=== PATIENT | male | born 1965 | race Caucasian/White ===

== ENCOUNTER 2018-10-23 09:32 | Observation (INO) | payer OTHER ==
--- NOTE | 2018-10-23 09:55 | ER Document Report ---
ED Medical Screen (RME) - General Chief Complaint: Hand Pain Stated Complaint: FINGER PAIN Time Seen by Provider: 10/23/18 09:52 Mode of Arrival: Ambulatory Information source: Patient TRAVEL OUTSIDE OF THE [place] IN LAST 30 DAYS: No - HPI Patient complains to provider of: R finger pain and swelling Onset: Last week - pt with injury to R long finger last week -- now with swelling, pain and drainage from that finger with swollen axillary nodes. He is NIDDM - Related Data Allergies/Adverse Reactions: No Known Allergies Allergy (Unverified 10/23/18 09:38) Past Medical History - Social History Chew tobacco use (# tins/day): No Frequency of alcohol use: None Drug Abuse: None Endocrine Medical History: Reports: Hx Diabetes Mellitus Type 2 Renal/ Medical History: Denies: Hx Peritoneal Dialysis Past Surgical History: Reports: Hx Appendectomy Physical Exam - Vital signs Vitals: Temp Pulse Resp BP Pulse Ox 98.4 F 96 17 162/84 H 97 10/23/18 09:37 10/23/18 09:37 10/23/18 09:37 10/23/18 09:37 10/23/18 09:37 Course - Vital Signs Vital signs: Temp Pulse Resp BP Pulse Ox 98.4 F 96 17 162/84 H 97 10/23/18 09:37 10/23/18 09:37 10/23/18 09:37 10/23/18 09:37 10/23/18 09:37
--- NOTE | 2018-10-23 10:16 | ER Document Report ---
ED General - General Chief Complaint: Hand Pain Stated Complaint: FINGER PAIN Time Seen by Provider: 10/23/18 09:52 Primary Care Provider: DILCIA KELLER PA [Primary Care Provider] - Follow up as needed Mode of Arrival: Ambulatory Notes: Patient is a 53-year-old male with diabetes mellitus that presents to the emergency department for chief complaint of right finger swelling. Patient reports that he had an injury to his right middle finger where it was crushed in a sliding glass door about a week ago, around the same time he did have an injury from a penetrating small wire at his work to the distal tip of his right middle finger. Over the course of the past week he has noticed worsening swelling pain and drainage from the right middle finger and then he noticed swelling and pain in his right armpit, as well as redness along his arm which he noticed yesterday through today. Denies any fevers, chills, night sweats, nausea, vomiting or abdominal pain. He currently rates his pain as a 6 out of 10 describes as a constant aching sensation in the tip of his finger. Past Medical History: Diabetes mellitus Past Surgical History: No recent or pertinent surgical history Social History: Admits to smoking cigarettes, denies alcohol or illicit drug use. Family History: Reviewed and noncontributory for presenting illness Allergies: Reviewed, see documented allergy list. REVIEW OF SYSTEMS: Other than noted above, the 12 point review of systems was reviewed with the patient and were negative, all pertinent findings are included in the HPI. PHYSICAL EXAMINATION: Vital signs reviewed, nursing noted reviewed. GENERAL: Patient appears uncomfortable exam, no acute respiratory distress. HEAD: Atraumatic, normocephalic. EYES: Eyes appear normal, extraocular movements intact, sclera anicteric, conjunctiva are normal. ENT: nares patent, oropharynx clear without exudates. Moist mucous membranes. NECK: Normal range of motion, supple without lymphadenopathy LUNGS: Breath sounds clear to auscultation bilaterally and equal. No wheezes rales or rhonchi. HEART: Regular rate and rhythm without murmurs ABDOMEN: Soft, nontender, normoactive bowel sounds. No rebound, guarding, or rigidity. No masses appreciated. EXTREMITIES: Right middle finger has a significant felon, with purulence, just under the skin, circumferential erythema over the distal portion of the finger, there is no tenderness along the flexor tendon, or fusiform swelling of the digit, no pain with passive extension of the digit either. Additionally on the patient's right upper extremity, he has lymphangitis and cellulitis of the upper extremity, and palpable axillary lymphadenopathy on the right as well. The rest of the extremity exam is grossly unremarkable. NEUROLOGICAL: No focal neurological deficits. Moves all extremities spontaneously Motor and sensory grossly intact on exam. PSYCH: Normal mood, normal affect. SKIN: Warm, Dry, normal turgor, no rashes or lesions noted on exposed skin TRAVEL OUTSIDE OF THE [place] IN LAST 30 DAYS: No - Related Data Allergies/Adverse Reactions: No Known Allergies Allergy (Unverified 10/23/18 09:38) Past Medical History - General Information source: Patient - Social History Smoking Status: Current Every Day Smoker Chew tobacco use (# tins/day): No Frequency of alcohol use: None Drug Abuse: None Family History: Reviewed & Not Pertinent Patient has suicidal ideation: No Patient has homicidal ideation: No Endocrine Medical History: Reports: Hx Diabetes Mellitus Type 2 Renal/ Medical History: Denies: Hx Peritoneal Dialysis Past Surgical History: Reports: Hx Appendectomy Physical Exam - Vital signs Vitals: Temp Pulse Resp BP Pulse Ox 98.4 F 96 17 162/84 H 97 10/23/18 09:37 10/23/18 09:37 10/23/18 09:37 10/23/18 09:37 10/23/18 09:37 Course - Re-evaluation Re-evalutation: Patient seen and examined vital signs reviewed. Laboratory data and imaging were ordered as appropriate for the patient's presenting symptoms and complaint, with consideration of any critical or life threatening conditions that may be associated with their obtained history and exam as noted above. Patient was treated with IV fluids, IV vancomycin and Zosyn. I did consult Dr. Aguilar with orthopedic surgery, who recommended digital block and I&D of the felon, did not think it was a flexor tendon tenosynovitis which I agreed with, we reviewed x-rays, radiologist thought they noticed a nondisplaced distal phalanx fracture, however after review did not particularly see this fracture, nor did Dr. Aguilar. I&D performed, culture obtained patient tolerated well. Results were reviewed when available and demonstrated mild leukocytosis, thrombocytosis, likely secondary to infection, hyperglycemia, blood work otherwise unremarkable. Culture sent and pending, lactate negative. The patient was re-evaluated and was stable and improved Evaluation was most consistent with right upper extremity cellulitis, left middle finger felon, in a patient with diabetes Results were discussed with the patient at this point after careful consideration I feel that that patient should be admitted to the hospital. This was discussed with the patient that it is in the best interest for their care to be admitted for further evaluation and management. Patient agreed with this plan of care. A call was placed to the admitted physician, Dr. Zimmerman who graciously accepted the patient onto their service. *Note is created using voice recognition software and may contain spelling, syntax or grammatical errors. Laboratory 10/23/18 10/23/18 10/23/18 10:05 10:05 10:42 WBC 11.1 H RBC 4.95 Hgb 14.5 Hct 42.2 MCV 85 MCH 29.2 MCHC 34.3 RDW 12.9 Plt Count 583 H Seg Neutrophils % 72.4 Lymphocytes % 18.7 Monocytes % 6.4 Eosinophils % 1.8 Basophils % 0.7 Absolute Neutrophils 8.0 Absolute Lymphocytes 2.1 Absolute Monocytes 0.7 Absolute Eosinophils 0.2 Absolute Basophils 0.1 Sodium 137.6 Potassium 4.6 Chloride 99 Carbon Dioxide 29 Anion Gap 10 BUN 11 Creatinine 0.53 Est GFR ( Amer) > 60 Est GFR (Non-Af Amer) > 60 Glucose 197 H Lactic Acid 0.7 Calcium 9.5 Total Bilirubin 0.6 Direct Bilirubin 0.2 Neonat Total Bilirubin Not Reportable Neonat Direct Bilirubin Not Reportable Neonat Indirect Bili Not Reportable AST 20 ALT 34 Alkaline Phosphatase 143 H Total Protein 6.9 Albumin 3.8 Hand X-Ray 10/23/18 09:53 IMPRESSION: Nondisplaced fracture distal phalanx 3rd digit. - Vital Signs Vital signs: Temp Pulse Resp BP Pulse Ox 98.4 F 96 17 162/84 H 97 10/23/18 09:37 10/23/18 09:37 10/23/18 09:37 10/23/18 09:37 10/23/18 09:37 - Laboratory Result Diagrams: 10/23/18 10:05 10/23/18 10:05 Laboratory results interpreted by me: 10/23/18 10/23/18 10:05 10:05 WBC 11.1 H Plt Count 583 H Glucose 197 H Alkaline Phosphatase 143 H Procedures - Incision and Drainage Right Finger Type: Complex Anesthetic type: 1% Lidocaine, 0.5% Bupivacaine mL's of anesthetic: 3 - Digital block Blade size: 11 I&D procedure: Betadine prep applied Incision Method: Incision made by scalpel Amount/type of drainage: 1.5ml Notes: Patient's finger was prepped and draped in a sterile fashion, patient was anesthetized with a digital block of the right middle finger, good anesthesia was obtained, and using an 11 blade scalpel, a 1 cm incision was made along the palmar radial aspect of the distal pad of the right middle finger, purulent drainage was expelled, it was irrigated, and more drainage was expelled, this was sent for culture. The wound was then cleaned with Shur-Clens. Patient tolerated the procedure well. Discharge - Discharge Clinical Impression: Felon of finger of right hand, Thrombocytosis Cellulitis Qualifiers: Site of cellulitis: extremity Site of cellulitis of extremity: upper extremity Laterality: right Qualified Code(s): L03.113 - Cellulitis of right upper limb Leukocytosis Qualifiers: Leukocytosis type: unspecified Qualified Code(s): D72.829 - Elevated white blood cell count, unspecified Condition: Stable Disposition: ADMITTED INPATIENT Admitting Provider: Hospitalist - Dr. Zimmerman Unit Admitted: Medical Floor Referrals: DILCIA KELLER PA [Primary Care Provider] - Follow up as needed
[2018-10-23] MEDS ORDERED: PIPERACILLIN/TAZOBACTAM 3.375 GM VIAL IV ONE (10:24)
[2018-10-23] MEDS ORDERED: VANCOMYCIN HCL INJ 1000 MG VIAL IV ONE (10:24)
[2018-10-23 10:41] LABS: ABSOLUTE BASOPHILS # (AUTO) 0.1 10^3/uL (0.0-0.2); ABSOLUTE EOSINOPHILS # (AUTO) 0.2 10^3/uL (0.0-0.6); ABSOLUTE LYMPHOCYTES (AUTO) 2.1 10^3/uL (0.5-4.7); ABSOLUTE MONOCYTES (AUTO) 0.7 10^3/uL (0.1-1.4); BASOPHILS % (AUTO) 0.7 % (0-2); EOSINOPHILS % (AUTO) 1.8 % (0-6); HEMATOCRIT 42.2 % (37.9-51.0); HEMOGLOBIN 14.5 g/dL (13.5-17.0); LYMPHOCYTES % (AUTO) 18.7 % (13-45); MEAN CORPUSCULAR HEMOGLOBIN 29.2 pg (27.0-33.4); MEAN CORPUSCULAR HGB CONC 34.3 g/dL (32.0-36.0); MEAN CORPUSCULAR VOLUME 85 fl (80-97); MONOCYTES % (AUTO) 6.4 % (3-13); PLATELET COUNT 583 10^3/uL (150-450); RED BLOOD COUNT 4.95 10^6/uL (4.35-5.55); RED CELL DISTRIBUTION WIDTH 12.9 % (11.5-14.0); SEGMENTED NEUTROPHILS % (AUTO) 72.4 % (42-78); TOTAL CELLS COUNTED % (AUTO) 100 %; WHITE BLOOD COUNT 11.1 10^3/uL (4.0-10.5)
--- NOTE | 2018-10-23 10:44 | RADIOLOGY REPORT (SQ) ---
EXAM DESCRIPTION: HAND RIGHT 3 VIEWS COMPLETED DATE/TIME: 10/23/2018 10:18 am REASON FOR STUDY: Sswelling R long finger door slammed COMPARISON: None. EXAM PARAMETERS: NUMBER OF VIEWS: Three views. TECHNIQUE: AP, lateral and oblique radiographic images acquired of the right hand. LIMITATIONS: None. FINDINGS: MINERALIZATION: Normal. BONES: Nondisplaced fracture of the proximal distal phalanx 3rd digit without intra-articular extensi on. Scattered osteophytes. JOINTS: No effusions. SOFT TISSUES: No soft tissue swelling. No foreign body. OTHER: No other significant finding. IMPRESSION: Nondisplaced fracture distal phalanx 3rd digit. TECHNICAL DOCUMENTATION: JOB ID: [id number] [employer]- All Rights Reserved Reading location - IP/workstation name: [email or web address]
[2018-10-23] MEDS ORDERED: LIDOCAINE 1%/EPINEPHRINE INJ 20 ML VIAL INJ ONE (10:52)
[2018-10-23] MEDS ORDERED: BUPIVACAINE HCL 0.5 % INJ/PF 30 ML SDV INJ ONE (10:53)
[2018-10-23 10:57] LABS: ALANINE AMINOTRANSFERASE 34 U/L (21-72); ALBUMIN 3.8 g/dL (3.5-5.0); ALKALINE PHOSPHATASE 143 U/L (38-126); ANION GAP 10 (5-19); ASPARTATE AMINO TRANSFERASE 20 U/L (17-59); BILIRUBIN,DIRECT 0.2 mg/dL (0.0-0.4); BILIRUBIN,TOTAL 0.6 mg/dL (0.2-1.3); BLOOD UREA NITROGEN 11 mg/dL (7-20); CALCIUM 9.5 mg/dL (8.4-10.2); CARBON DIOXIDE 29 mmol/L (22-30); CHLORIDE 99 mmol/L (98-107); GLUCOSE 197 mg/dL (75-110); POTASSIUM 4.6 mmol/L (3.6-5.0); SODIUM 137.6 mmol/L (137-145); TOTAL PROTEIN 6.9 g/dL (6.3-8.2)
[2018-10-23] MEDS ORDERED: NORMAL SALINE 1000 ML 1,000 ML IV ONE (11:00)
[2018-10-23] MEDS ORDERED: KETOROLAC TROMETHAMINE INJ/PF 30 MG/1 ML SDV IV ONE (12:26)
[2018-10-23] MEDS ORDERED: DEXTROSE 50%-WATER 25 GM/50 ML DISP.SYRIN IV PRN ×2 (12:30)
[2018-10-23] MEDS ORDERED: GLUCAGON,HUMAN RECOMB 1 MG INJ IM PRN (12:30)
[2018-10-23] MEDS ORDERED: DEXTROSE 40% GEL 15 GM TUBE PO PRN ×2 (12:30)
[2018-10-23] MEDS ORDERED: VANCOMYCIN HCL 0 MG in DEXTROSE 5%-WATER 250 ML IV NR (12:30)
--- NOTE | 2018-10-23 12:41 | PDOC H&P ---
History of Present Illness Admission Date/PCP: 10/23/18 12:27 DESMOND TERRY Patient complains of: arm pain, finger swelling History of Present Illness: HERON DANIELSON is a 53 year old male with no significant PMH aside from non insulin dependent DM type 2-on metformin who presented with pain on the right middle finger and right arm. Patient accidentally slammed the door on his right hand last week and subsequently developed pain and tenderness on the tip of the right middle finger. The distal part of the finger developed erythema and continued to swell. In the past 2 days, he noticed increasing pain and slight swelling and erythema on the right arm and yesterday noticed lymph node enlargement o the right axilla and erythema which has now extended up to the right anteromedial part of the right arm. In the ER, I&D was done by ER provider on the right middle finger where purulent discharge was drained. Hand x-ray shows possible nondisplaced fracture on the right finger. Patient was also evaluated by Dr. Aguilar in the ER who deems there is no concern for tenosynovitis at this time and that there is no discernable fracture on the x-ray. Upon encounter, the right middle finger has been drained. There is erythema extending from the right middle finger and right hand extending up to the right arm. There is also significant right axillary LAD. Past Medical History Endocrine Medical History: Reports: Diabetes Mellitus Type 2 Past Surgical History Past Surgical History: Reports: Appendectomy Social History Smoking Status: Current Every Day Smoker Family History Parental Family History Reviewed: Yes - no premature CAD Children Family History Reviewed: No Sibling(s) Family History Reviewed.: No Medication/Allergy Home Medications: Metformin HCl 1,000 mg PO BID 10/23/18 Allergies/Adverse Reactions: No Known Allergies Allergy (Unverified 10/23/18 09:38) Review of Systems All systems: reviewed and no additional remarkable complaints except as stated - as mentioned in HPI Physical Exam Vital Signs: Temp Pulse Resp BP Pulse Ox 98.4 F 96 17 162/84 H 97 10/23/18 09:37 10/23/18 09:37 10/23/18 09:37 10/23/18 09:37 10/23/18 09:37 Intake & Output 10/22/18 10/23/18 10/24/18 06:59 06:59 06:59 Weight 202 lb 13.204 oz Results Laboratory Results: 10/23/18 10:05 10/23/18 10:05 10/23/18 10/23/18 10/23/18 10:05 10:05 10:42 WBC 11.1 H RBC 4.95 Hgb 14.5 Hct 42.2 MCV 85 MCH 29.2 MCHC 34.3 RDW 12.9 Plt Count 583 H Seg Neutrophils % 72.4 Lymphocytes % 18.7 Monocytes % 6.4 Eosinophils % 1.8 Basophils % 0.7 Absolute Neutrophils 8.0 Absolute Lymphocytes 2.1 Absolute Monocytes 0.7 Absolute Eosinophils 0.2 Absolute Basophils 0.1 Sodium 137.6 Potassium 4.6 Chloride 99 Carbon Dioxide 29 Anion Gap 10 BUN 11 Creatinine 0.53 Est GFR ( Amer) > 60 Est GFR (Non-Af Amer) > 60 Glucose 197 H Lactic Acid 0.7 Calcium 9.5 Total Bilirubin 0.6 AST 20 ALT 34 Alkaline Phosphatase 143 H Total Protein 6.9 Albumin 3.8 Impressions: Hand X-Ray 10/23/18 09:53 IMPRESSION: Nondisplaced fracture distal phalanx 3rd digit. Assessment & Plan - Diagnosis (1) Abscess of right middle finger Is this a current diagnosis for this admission?: Yes Plan: S/P I&D in the ER. Wound drainage sent for culture. He has been started on vancomycin and Zosyn in the ER. (2) Cellulitis of right arm Is this a current diagnosis for this admission?: Yes Plan: Antibiotics as mentioned in #1. Toradol prn for pain. (3) DM type 2 (diabetes mellitus, type 2) Is this a current diagnosis for this admission?: Yes Plan: Accuchecks ACHS with sliding scale insulin. - Time Time Spent: 30 to 50 Minutes
[2018-10-23] MEDS: INSULIN LISPRO 100 UNIT/ML 3 ML VIAL SUBCUT SCH ×2 (18:03→21:42)
[2018-10-23] MEDS: KETOROLAC TROMETHAMINE INJ/PF 30 MG/1 ML SDV IV PRN (21:28)
[2018-10-23] MEDS: VANCOMYCIN HCL 1,500 MG in DEXTROSE 5%-WATER 250 ML IV SCH (21:29)
[2018-10-24] MEDS: VANCOMYCIN HCL 1,500 MG in DEXTROSE 5%-WATER 250 ML IV SCH ×2 (05:29→13:08)
[2018-10-24] MEDS: KETOROLAC TROMETHAMINE INJ/PF 30 MG/1 ML SDV IV PRN (07:56)
[2018-10-24] MEDS: INSULIN LISPRO 100 UNIT/ML 3 ML VIAL SUBCUT SCH ×2 (07:57→11:02)
[2018-10-24] MEDS ORDERED: FONDAPARINUX SODIUM INJ 2.5 MG/0.5 ML DISP.SYRIN SUBCUT SCH (08:00)
[2018-10-24 11:58] VITALS: BP 137/70
--- NOTE | 2018-10-24 14:30 | PDOC DISCHARGE SUMMARY ---
General - Admit/Disc Date/PCP Admission Date/Primary Care Provider: 10/23/18 12:27 DESMOND TERRY Discharge Date: 10/24/18 - Discharge Diagnosis (1) Abscess of right middle finger Is this a current diagnosis for this admission?: Yes (2) Cellulitis of right arm Is this a current diagnosis for this admission?: Yes (3) DM type 2 (diabetes mellitus, type 2) Is this a current diagnosis for this admission?: Yes - Additional Information Discharge Diet: Diabetic Discharge Activity: Activity As Tolerated, No tub bath Prescriptions: Amox Tr/Potassium Clavulanate [Augmentin 875-125 mg Tablet] 1 tab PO BID 7 Days #14 tablet Home Medications: Metformin HCl 1,000 mg PO BID 10/23/18 Amox Tr/Potassium Clavulanate [Augmentin 875-125 mg Tablet] 1 tab PO BID 7 Days #14 tablet 10/24/18 History of Present Illness History of Present Illness: HERON DANIELSON is a 53 year old male with no significant PMH aside from non insulin dependent DM type 2-on metformin who presented with pain on the right middle finger and right arm. Patient accidentally slammed the door on his right hand last week and subsequently developed pain and tenderness on the tip of the right middle f armando. The distal part of the finger developed erythema and continued to swell. In the past 2 days, he noticed increasing pain and slight swelling and erythema on the right arm and yesterday noticed lymph node enlargement o the right axilla and erythema which has now extended up to the right anteromedial part of the right arm. In the ER, I&D was done by ER provider on the right middle finger where purulent discharge was drained. Hand x-ray shows possible nondisplaced fracture on the right finger. Patient was also evaluated by Dr. Aguilar in the ER who deems there is no concern for tenosynovitis at this time and that there is no discernable fracture on the x-ray. Upon encounter, the right middle finger has been drained. There is erythema extending from the right middle finger and right hand extending up to the right arm. There is also significant right axillary LAD. Hospital Course Hospital Course: HERON DANIELSON is a 53 year old male with no significant PMH aside from non insulin dependent DM type 2-on metformin who presented with pain on the right middle finger and right arm. Patient accidentally slammed the door on his right hand last week and subsequently developed pain and tenderness on the tip of the right middle finger. The distal part of the finger developed erythema and continued to swell. In the past 2 days, he noticed increasing pain and slight swelling and erythema on the right arm and yesterday noticed lymph node enlargement of the right axilla and erythema which has now extended up to the right anteromedial part of the right arm. In the ER, I&D was done by ER provider on the right middle finger where purulent discharge was drained. Hand x-ray shows possible nondisplaced fracture on the right finger. Patient was also evaluated by Dr. Aguilar in the ER who deems there is no concern for tenosynovitis at this time and that there is no discernable fracture on the x- ray. He was given vancomycin and Zosyn in the ER. He was continued on IV vancomycin. He had significant improvement overnight. The erythema and tenderness on the right middle finger, hand and arm have significantly improved this morning. Recommended at least one more night of IV antibiotics and patient refused to be here for another day and says he needs to do something important at home. Wound culture grew Group B Strep. He will be prescribed Augmentin for 7 days and will be given an appointment with the wound clinic. Physical Exam Vital Signs: Temp Pulse Resp BP Pulse Ox 98.0 F 72 18 137/70 H 95 10/24/18 11:55 10/24/18 11:55 10/24/18 11:55 10/24/18 11:55 10/24/18 11:55 Intake & Output 10/23/18 10/24/18 10/25/18 06:59 06:59 06:59 Intake Total 1250 490 Balance 1250 490 Weight 199 lb 8.293 oz General appearance: PRESENT: no acute distress, well-developed, well-nourished Head exam: PRESENT: atraumatic, normocephalic Eye exam: PRESENT: conjunctiva pink, EOMI, PERRLA. ABSENT: scleral icterus Ear exam: PRESENT: normal external ear exam Mouth exam: PRESENT: moist, tongue midline Neck exam: ABSENT: carotid bruit, JVD, lymphadenopathy, thyromegaly Respiratory exam: PRESENT: clear to auscultation divine. ABSENT: rales, rhonchi, wheezes Cardiovascular exam: PRESENT: RRR. ABSENT: diastolic murmur, rubs, systolic murmur Pulses: PRESENT: normal dorsalis pedis pul Vascular exam: PRESENT: normal capillary refill GI/Abdominal exam: PRESENT: normal bowel sounds, soft. ABSENT: distended, guarding, mass, organolmegaly, rebound, tenderness Rectal exam: PRESENT: deferred Musculoskeletal exam: PRESENT: other - erythema and tenderness on the hand and arm Neurological exam: PRESENT: alert, awake, oriented to person, oriented to place, oriented to time, oriented to situation, CN II-XII grossly intact. ABSENT: motor sensory deficit Results Laboratory Results: 10/23/18 10:05 10/23/18 10:05 Impressions: Hand X-Ray 10/23/18 09:53 IMPRESSION: Nondisplaced fracture distal phalanx 3rd digit. Qualifiers - * PATIENT BEING DISCHARGED WITH ANY OF THE FOLLOWING DIAGNOSIS: No
== END 2018-10-24 14:53 | disposition home or self-care (01) ==
LOC: ER 09:32 → EH 12:27 → INTOOBSV 12:27 → 2N 14:15
PROVIDERS: ADMIT Internal Medicine; ATTEND Internal Medicine
PROC: 0J9J0ZZ Drainage of Right Hand Subcutaneous Tissue and Fascia, Open Approach (ICD-10-PCS; principal; 2018-10-23)
DX: L02.511 Cutaneous abscess of right hand (principal); B95.1 Streptococcus, group B, as the cause of diseases classified elsewhere; L03.113 Cellulitis of right upper limb; W23.0XXA Caught, crushed, jammed, or pinched between moving objects, initial encounter; E11.65 Type 2 diabetes mellitus with hyperglycemia; S61.232A Puncture wound without foreign body of right middle finger without damage to nail, initial encounter; W26.8XXA Contact with other sharp object(s), not elsewhere classified, initial encounter; Y99.0 Civilian activity done for income or pay; F17.210 Nicotine dependence, cigarettes, uncomplicated; R59.0 Localized enlarged lymph nodes; D72.829 Elevated white blood cell count, unspecified; D47.3 Essential (hemorrhagic) thrombocythemia; Z79.84 Long term (current) use of oral hypoglycemic drugs; Z90.49 Acquired absence of other specified parts of digestive tract
CPT/HCPCS: 99284; 96365; 96367; 36415; 87040; 87070; 87205; 82962 ×2; 85025; 87077; 80053; 83605; 73130; 26011; G0378 ×3; J3490 ×4; J1815 ×2; J1885 ×2; J1652; J7060 ×2; J7030; J3370 ×2; J2543